=== PATIENT | male | born 1990 | race African-American/Black ===

== ENCOUNTER 2018-05-29 13:29 | Emergency (ER) | payer OTHER ==
[~2018-05-29] VITALS: Ht 190.5 cm; Wt 111.7 kg
[~2018-05-29 13:29] MED LIST: CORTISPORIN OTI10 ML OTIC; IBUPROFEN 600600 M1 PO; LITHIUM CARBON150 MG PO; NORCO 5-325 TA1 EACH PO; RITALIN20 MG PO; TRAZODONE 150150 M1 PO
[2018-05-29 14:33] LABS: URINE BLOOD NEGATIVE (Negative); URINE CLARITY CLEAR; URINE COLOR DARK YELLOW; URINE GLUCOSE-RANDOM NEGATIVE (Negative); URINE KETONES 1+ (Negative); URINE LEUKOCYTES NEGATIVE (Negative); URINE NITRITE NEGATIVE (Negative); URINE PROTEIN 2+ (Negative); URINE SPECIFIC GRAVITY >= 1.030 (1.005-1.030)
[2018-05-29 14:38] LABS: ICTOTEST (BILI CONFIRMATORY) Negative (Negative); URINE BILIRUBIN 1+ (Negative)
[2018-05-29 14:39] LABS: AMP/METHAMP POSITIVE (Negative); BARBITURATES Negative (Negative); BENZODIAZEPINES Negative (Negative); COCAINE Negative (Negative); METHADONE Negative (Negative); OPIATES Negative (Negative); PCP Negative (Negative); THC Negative (Negative)
[2018-05-29 14:42] LABS: ABSOLUTE LYMPHOCYTES 2.3 thou/uL (0.8-5.3); ABSOLUTE NEUTROPHILS 3.6 thou/uL (1.6-8.1); BASOPHILS 0.7 %; EOSINOPHILS 0.6 %; HEMATOCRIT 38.3 % (42.0-52.0); HEMOGLOBIN 12.7 gm/dL (14.0-18.0); LYMPHOCYTES 32.6 %; MCHC 33.1 g/dL (28.0-37.0); MCV 87.7 fL (80.0-100.0); MONOCYTES 14.7 %; MPV 9.4 fl. (7.2-11.1); NUCLEATED RBCS 0 /100WBC; PLATELET COUNT* 264 thou/uL (150-400); POLYS 51.4 %; RBC 4.37 mil/uL (4.50-6.00); RDW-CV 12.9 % (10.5-14.5)
[2018-05-29 14:45] LABS: BACTERIA 1-9 Few /HPF (None Seen); HYALINE CASTS 0-3 Few /LPF (None Seen); MUCUS >6 Heavy strn/LPF (None Seen); SQUAMOUS 0-3 Few /LPF (0-3); URINE RBC None Seen /HPF (0-2); URINE WBC None Seen /HPF (0-5)
[2018-05-29 14:46] LABS: CRYSTALS None Seen /LPF (None Seen)
[2018-05-29 14:50] LABS: CALCIUM 8.8 mg/dL (8.5-10.1); CREATININE 1.5 mg/dL (0.6-1.3)
[2018-05-29 14:55] LABS: ALBUMIN 4.1 g/dL (3.4-5.0); TOTAL PROTEIN 7.6 g/dL (6.4-8.2)
[2018-05-29] MEDS ORDERED: LITHIUM CARBON150 MG PO (15:10)
[2018-05-29] MEDS ORDERED: DESYREL150 MG PO (15:10)
[2018-05-29 16:00] VITALS: BP 134/75
== END 2018-05-29 16:40 | disposition home or self-care (01) ==
LOC: M.ERS 13:29
PROVIDERS: Personal Emergency Response Attendant
DX: R56.9 Unspecified convulsions (principal); F15.10 Other stimulant abuse, uncomplicated; F31.9 Bipolar disorder, unspecified; E11.9 Type 2 diabetes mellitus without complications; F20.9 Schizophrenia, unspecified